=== PATIENT | female | born 1990 | race Caucasian/White ===

== ENCOUNTER → 2020-04-18 10:55 | Outpatient (BNVA) | payer OTHER, SELFPAY | PROVIDERS: Visit Provider Nurse Practitioner Family | DX: J02.9 Acute pharyngitis, unspecified (principal) | CPT/HCPCS: 87071; 87880 ==

== ENCOUNTER → 2020-08-26 08:42 | Outpatient (BNVA) | payer OTHER, SELFPAY | PROVIDERS: Visit Provider Family Medicine | DX: Z20.828 Contact with and (suspected) exposure to other viral communicable diseases (principal); R05 Cough; J40 Bronchitis, not specified as acute or chronic; J02.9 Acute pharyngitis, unspecified | CPT/HCPCS: 87400; 87635 ==

== ENCOUNTER → 2020-12-12 07:40 | Outpatient (BNVA) | payer OTHER, SELFPAY | PROVIDERS: Visit Provider Nurse Practitioner Family | DX: M79.10 Myalgia, unspecified site (principal); E55.9 Vitamin D deficiency, unspecified; R41.840 Attention and concentration deficit; M25.50 Pain in unspecified joint | CPT/HCPCS: 80053; 82306; 85025; 85651; 86140 ==

== ENCOUNTER → 2021-11-10 10:02 | Outpatient (BNVA) | payer OTHER, SELFPAY | PROVIDERS: Visit Provider Nurse Practitioner Family | DX: J02.9 Acute pharyngitis, unspecified (principal) | CPT/HCPCS: 87071; 87400; 87880 ==

== ENCOUNTER → 2022-06-22 14:30 | Outpatient (BNVA) | payer OTHER, SELFPAY | PROVIDERS: Visit Provider Nurse Practitioner Family | DX: R50.9 Fever, unspecified (principal) | CPT/HCPCS: 87426 ==

== ENCOUNTER → 2023-05-18 14:47 | Outpatient (BNVA) | payer OTHER, SELFPAY | PROVIDERS: PCP Nurse Practitioner Family; Visit Provider Nurse Practitioner Family | DX: J02.9 Acute pharyngitis, unspecified (principal); J34.89 Other specified disorders of nose and nasal sinuses | CPT/HCPCS: 87071; 87400; 87426; 87880 ==

== ENCOUNTER → 2024-06-02 14:54 | Outpatient (BNVA) | payer OTHER, SELFPAY | PROVIDERS: PCP Nurse Practitioner Family; Visit Provider Nurse Practitioner Family | DX: R68.89 Other general symptoms and signs (principal) | CPT/HCPCS: 87635 ==

== ENCOUNTER → 2024-07-17 09:00 | Outpatient (BNVA) | payer OTHER, SELFPAY | PROVIDERS: PCP Nurse Practitioner Family; Visit Provider Nurse Practitioner Family | DX: Z12.4 Encounter for screening for malignant neoplasm of cervix (principal) | CPT/HCPCS: 88175 ==

== ENCOUNTER → 2024-11-10 11:16 | Outpatient (BNVA) | payer OTHER, SELFPAY | PROVIDERS: PCP Nurse Practitioner Family; Visit Provider Nurse Practitioner Family | DX: R39.89 Other symptoms and signs involving the genitourinary system (principal) | CPT/HCPCS: 81000 ==

== ENCOUNTER → 2025-04-18 11:40 | Outpatient (BNVA) | payer OTHER, SELFPAY | PROVIDERS: PCP Nurse Practitioner Family; Visit Provider Nurse Practitioner Family | DX: R42 Dizziness and giddiness (principal); R51.9 Headache, unspecified | CPT/HCPCS: 80053; 80061; 81025; 82306; 82607; 82672; 82728; 83550; 83735; 84144; 84443; 85025; 85651; 86140 ==